=== PATIENT | female | born 1950 | race Caucasian/White ===

== ENCOUNTER 2020-09-29 12:42 | Inpatient (IN) | payer MEDICARE ==
[2020-09-29 14:00] LABS: Appearance SLIGHTLY CLOUDY (CLEAR); Bilirubin NEGATIVE (NEGATIVE); Blood NEGATIVE Ery/ul (0-5); Epithelial Cells RARE /HPF (FEW); Glucose NEGATIVE (NEGATIVE); Ketones TRACE (NEGATIVE); Leukocyte Esterase NEGATIVE (NEGATIVE); Mucus SLIGHT /HPF (NEGATIVE); Nitrite NEGATIVE (NEGATIVE); Protein,Urine Dip 100 (Negative); RBC 0-2 /HPF (0-2); Specific Gravity 1.027 (1.005-1.025); Urobilinogen 4 mg/dL (0-1)
[2020-09-29 14:15] LABS: Hematocrit 38.9 % (35-47); Hemoglobin 12.3 gm/dl (12.0-16.0); Mean Cell Volume 94.9 fl (78-100); Mean Corpuscular Hgb Concent. 31.6 g/dl (32-36); Mean Platelet Volume 11.3 fl (7.5-11.0); Platelet Count 187 K/mm3 (150-450); Red Cell Distribution Width 14.9 % (11.5-14.0); White Blood Count 5.5 K/mm3 (4.0-10.5)
[2020-09-29 14:22] LABS: ALBUMIN 3.4 g/dL (3.5-5.0); ANION GAP 9.8 MEQ/L (5-15); BILIRUBIN,TOTAL 0.6 mg/dL (0.2-1.3); Calcium 7.6 mg/dL (8.4-10.2); Creatinine 1 1.05 mg/dL (0.52-1.04); EST GLOMERULAR FILTRATION RATE 55.2 ML/MIN; Potassium 3.1 mmol/L (3.5-5.1); Total Protein 6.4 g/dL (6.3-8.2)
--- NOTE | 2020-09-29 14:38 | ERPHSYRPT ---
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 pt states she has thyroid issues and "it just bottoms out sometimes" Triage Nursing Assessment: to er c/o general illness pt arrives dusky weak and nauseated. pt 02 sats on monitor 75% on ra pt does not wear home o2 when placed on 2l pt began to pink up though pt denies any sob with this. pt vomited x1 resp easy and non labored pt a@0x3 at this time though was not oriented to time at home Physician History: 70 years old female with history of hypertension, hyperlipidemia, hypothyroidism presented in the ER with chief complaint of 1 week history of progressive worsening generalized weakness fatigue and tiredness. Also has subjective feeling of fever and chills. Minimal productive cough. Patient was seen outpatient, was recommended supportive care. Patient on presentation is hypoxic with oxygen saturation around 75% but denies any shortness of breath, placed on 2 L oxygen and it improved to 92%. She also got nauseated and vomited times once on presentation in the ER but denies any abdominal pain. Timing/Duration: week(s) (1), gradual onset, worse Severity: moderate Modifying Factors: Improves With: rest. Worsens With: movement Associated Symptoms: nausea, vomiting, cough, chills, fever, loss of appetite, malaise, weakness, No abdominal pain Allergies/Adverse Reactions: No Known Drug Allergies Allergy (Unverified 09/29/20 13:27) Home Medications: Hydrochlorothiazide 25 mg [hydroDIURIL 25 MG] 12.5 mg PO DAILY 09/29/20 [History] Levothyroxine Sodium 88 Mcg [Synthroid 88 Mcg] 88 mcg PO DAILY 09/29/20 [History] Loratadine 10 mg [Claritin 10 mg] 10 mg PO DAILY 09/29/20 [History] Montelukast Sodium 10 mg PO DAILY 09/29/20 [History] Omeprazole 20 mg PO DAILY 09/29/20 [History] Pravastatin Sodium 20 mg PO DAILY 09/29/20 [History] Terbinafine HCl 250 mg PO DAILY 09/29/20 [History] Hx Influenza Vaccination/Date Given: Yes Travel Risk - International Travel Have you traveled outside of the country in past 3 weeks: No - Coronavirus Screening Are you exhibiting any of the following symptoms?: Yes Symptoms: Fever, Vomiting/Diarrhea Close contact with a COVID-19 positive Pt in past 14-21 Days: No - Review of Systems Constitutional: Fever, Chills, Fatigue, Weakness Eyes: No Symptoms Ears, Nose, & Throat: No Symptoms Respiratory: Cough, Dyspnea Cardiac: No Symptoms Abdominal/Gastrointestinal: Nausea, Vomiting Genitourinary Symptoms: No Symptoms Musculoskeletal: No Symptoms Skin: No Symptoms Neurological: No Symptoms Psychological: No Symptoms Endocrine: No Symptoms Hematologic/Lymphatic: No Symptoms - Past Medical History Pertinent Past Medical History: Yes Respiratory History: Bronchitis Endocrine Medical History: Hypothyroidism Musculoskeletal History: No Pertinent History GI Medical History: No Pertinent History History: No Pertinent History Psycho-Social History: No Pertinent History Female Reproductive Disorders: No Pertinent History - Past Surgical History Past Surgical History: Yes Female Surgical History: Hysterectomy - Social History Smoking Status: Never smoker Exposure to second hand smoke: No - Nursing Vital Signs Nursing Vital Signs: Initial Vital Signs Temperature 99.8 F 09/29/20 13:12 Pulse Rate 79 09/29/20 13:12 Respiratory Rate 16 09/29/20 13:12 Blood Pressure 115/62 09/29/20 13:12 O2 Sat by Pulse Oximetry 78 L 09/29/20 13:12 Pain Scale Pain Intensity 0 - Physical Exam General Appearance: no apparent distress Eye Exam: PERRL/EOMI Ears, Nose, Throat Exam: normal ENT inspection, pharyngeal erythema Neck Exam: normal inspection, non-tender, supple, full range of motion Respiratory Exam: diminished breath sounds, crackles/rales, wheezing, No accessory muscle use Cardiovascular Exam: regular rate/rhythm, normal heart sounds Gastrointestinal/Abdomen Exam: soft, normal bowel sounds, No tenderness Back Exam: normal inspection Extremity Exam: normal inspection, normal range of motion, pelvis stable Neurologic Exam: alert, oriented x 3, cooperative, 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, normal mood/affect Skin Exam: normal color SpO2 Interpretation: normal SpO2: 92 O2 Delivery: Nasal Cannula - Course EKG Interpreted by Me: RATE (75), NORMAL AXIS, NORMAL INTERVALS, NORMAL QRS Ordered Tests: Active Orders 24 hr Category Date Time Status EKG-ER Only STAT Care 09/29/20 13:38 Active IV Insertion STAT Care 09/29/20 13:38 Active CHEST 1 VIEW (PORTABLE) Stat Exams 09/29/20 13:39 Completed CHEST WITH CONTRAST [CT] Stat Exams 09/29/20 16:31 Completed ABG [ARTERIAL BLOOD GASES] Stat Lab 09/29/20 14:07 Completed BLOOD CULTURE Stat Lab 09/29/20 14:05 Received CBC W DIFF Stat Lab 09/29/20 13:50 Completed CMP Stat Lab 09/29/20 13:50 Completed D-DIMER QUANTITATIVE Stat Lab 09/29/20 16:06 Completed LIPASE Stat Lab 09/29/20 13:50 Completed Lactic Acid Stat Lab 09/29/20 13:38 Completed Manual Differential NC Stat Lab 09/29/20 13:50 Completed TROPONIN Q3H Lab 09/29/20 13:50 Completed TROPONIN Q3H Lab 09/29/20 14:45 Completed TROPONIN Q3H Lab 09/29/20 19:45 Ordered TROPONIN Q3H Lab 09/29/20 22:45 Ordered TROPONIN Q3H Lab 09/30/20 01:45 Ordered TSH [TSH, 3RD Generation] Stat Lab 09/29/20 13:50 Completed UA W/RFX UR CULTURE Stat Lab 09/29/20 13:54 Completed Transfer Order Routine Transfer 09/29/20 Ordered Medication Summary Generic Name Dose Route Start Last Admin Trade Name Freq PRN Reason Stop Dose Admin Remdesivir 200 mg/ Sodium 250 mls @ 125 mls/hr 09/29/20 15:29 09/29/20 16:04 Chloride IV 09/29/20 17:28 125 mls/hr ONCE ONE Administration Discontinued Medications Generic Name Dose Route Start Last Admin Trade Name Freq PRN Reason Stop Dose Admin Aspirin 324 mg 09/29/20 14:46 Baby Aspirin 81 Mg Chew PO 09/29/20 14:47 STAT ONE Dexamethasone Sodium Phosphate 6 mg 09/29/20 14:47 09/29/20 15:20 Decadron 4 Mg Inj IV 09/29/20 14:48 6 mg STAT ONE Administration Dexamethasone Sodium Phosphate Confirm 09/29/20 15:14 Decadron 4 Mg Inj Administered 09/29/20 15:15 Dose 4 mg .ROUTE .STK-MED ONE Dexamethasone Sodium Phosphate Confirm 09/29/20 15:24 Decadron 4 Mg Inj Administered 09/29/20 15:25 Dose 4 mg .ROUTE .STK-MED ONE Azithromycin 500 mg in 250 mls @ 250 mls/hr 09/29/20 14:44 09/29/20 15:17 Zithromax 500 Mg/ 250 Ml Nacl Premix IV 09/29/20 15:43 100 mls/hr STAT STA 100 mls/hr Administration Ceftriaxone Sodium/Dextrose 1 g in 50 mls @ 100 mls/hr 09/29/20 14:44 09/29/20 15:20 Rocephin 1 Gm-D5w 50 Ml Bag IV 09/29/20 15:13 100 mls/hr STAT STA 100 mls/hr Administration Azithromycin Confirm 09/29/20 15:15 Zithromax 500 Mg/ 250 Ml Nacl Premix Administered 09/29/20 15:16 Dose 500 mg in 250 mls @ ud IV .STK-MED ONE Ceftriaxone Sodium/Dextrose Confirm 09/29/20 15:15 Rocephin 1 Gm-D5w 50 Ml Bag Administered 09/29/20 15:16 Dose 1 g in 50 mls @ ud IV .STK-MED ONE Lab/Rad Data: Laboratory Result Diagrams 09/29/20 13:50 09/29/20 13:50 Laboratory Results 09/29/20 09/29/20 09/29/20 Range/Units 16:06 14:45 14:28 WBC (4.0-10.5) K/mm3 RBC (4.1-5.4) M/mm3 Hgb (12.0-16.0) gm/dl Hct (35-47) % MCV (78-100) fl MCH (26-32) pg MCHC (32-36) g/dl RDW (11.5-14.0) % Plt Count (150-450) K/mm3 MPV (7.5-11.0) fl Segmented Neutrophils (36.0-66.0) % Lymphocytes (Manual) (24-44) % Monocytes (Manual) (0.0-12.0) % Platelet Estimate (NORMAL) RBC Morphology D-Dimer 1030 H* (215-500) ng/mL Puncture Site pCO2 (35-45) mmHg pO2 (75-100) mmHg Base Excess (-2.0-2.0) O2 Saturation (94-100) g/dF ABG pH (7.35-7.45) ABG HCO3 (22-28) ABG O2 Sat (Measured) (95-100) % Enoc Test A-a Gradient a/A Ratio Hemoglobin Carboxyhemoglobin (0.0-6.9) % THgb Methemoglobin (1.4-1.5) % Temperature C POC O2 Flow Rate % Sodium (137-145) mmol/L Potassium (3.5-5.1) mmol/L Chloride (98-107) mmol/L Carbon Dioxide (22-30) mmol/L Anion Gap (5-15) MEQ/L BUN (7-17) mg/dL Creatinine (0.52-1.04) mg/dL Estimated GFR ML/MIN Glucose (74-106) mg/dL Lactic Acid (0.4-2.0) Calcium (8.4-10.2) mg/dL Total Bilirubin (0.2-1.3) mg/dL AST (14-36) U/L ALT (0-35) U/L Alkaline Phosphatase (38-126) U/L Troponin I 0.063 H* (0.000-0.034) ng/mL Serum Total Protein (6.3-8.2) g/dL Albumin (3.5-5.0) g/dL Lipase (23-300) U/L TSH 3rd Generation (0.47-4.68) mIU/L Urine Color (YELLOW) Urine Appearance (CLEAR) Urine pH (5-6) Ur Specific [place] (1.005-1.025) Urine Protein (Negative) Urine Ketones (NEGATIVE) Urine Blood (0-5) James/ul Urine Nitrite (NEGATIVE) Urine Bilirubin (NEGATIVE) Urine Urobilinogen (0-1) mg/dL Ur Leukocyte Esterase (NEGATIVE) Urine WBC (Auto) (0-5) /HPF Urine RBC (Auto) (0-2) /HPF U Epithel Cells (Auto) (FEW) /HPF Urine Bacteria (Auto) (NEGATIVE) /HPF Urine Mucus (Auto) (NEGATIVE) /HPF Urine Culture Reflexed (NO) Urine Glucose (NEGATIVE) mg/dL SARS-CoV-2 (PCR) POSITIVE A (NEGATIVE) 09/29/20 09/29/20 09/29/20 Range/Units 14:07 13:54 13:50 WBC (4.0-10.5) K/mm3 RBC (4.1-5.4) M/mm3 Hgb (12.0-16.0) gm/dl Hct (35-47) % MCV (78-100) fl MCH (26-32) pg MCHC (32-36) g/dl RDW (11.5-14.0) % Plt Count (150-450) K/mm3 MPV (7.5-11.0) fl Segmented Neutrophils (36.0-66.0) % Lymphocytes (Manual) (24-44) % Monocytes (Manual) (0.0-12.0) % Platelet Estimate (NORMAL) RBC Morphology D-Dimer (215-500) ng/mL Puncture Site LEFT BRACHIAL pCO2 47 H (35-45) mmHg pO2 70 L (75-100) mmHg Base Excess 9.1 H (-2.0-2.0) O2 Saturation 93.0 L (94-100) g/dF ABG pH 7.47 H (7.35-7.45) ABG HCO3 34.2 H* (22-28) ABG O2 Sat (Measured) 95.6 (95-100) % Enoc Test NOT APPLICABLE A-a Gradient 71 a/A Ratio 0.50 Hemoglobin 12.6 Carboxyhemoglobin 1.8 (0.0-6.9) % THgb Methemoglobin 0.9 L (1.4-1.5) % Temperature 37.0 C POC O2 Flow Rate 28 % Sodium (137-145) mmol/L Potassium 3.0 L (3.5-5.1) mmol/L Chloride (98-107) mmol/L Carbon Dioxide (22-30) mmol/L Anion Gap (5-15) MEQ/L BUN (7-17) mg/dL Creatinine (0.52-1.04) mg/dL Estimated GFR ML/MIN Glucose (74-106) mg/dL Lactic Acid (0.4-2.0) Calcium (8.4-10.2) mg/dL Total Bilirubin (0.2-1.3) mg/dL AST (14-36) U/L ALT (0-35) U/L Alkaline Phosphatase (38-126) U/L Troponin I 0.065 H* (0.000-0.034) ng/mL Serum Total Protein (6.3-8.2) g/dL Albumin (3.5-5.0) g/dL Lipase (23-300) U/L TSH 3rd Generation (0.47-4.68) mIU/L Urine Color SG (YELLOW) Urine Appearance SLIGHTLY CLOUDY (CLEAR) Urine pH 5.0 (5-6) Ur Specific [place] 1.027 (1.005-1.025) Urine Protein 100 (Negative) Urine Ketones TRACE (NEGATIVE) Urine Blood NEGATIVE (0-5) James/ul Urine Nitrite NEGATIVE (NEGATIVE) Urine Bilirubin NEGATIVE (NEGATIVE) Urine Urobilinogen 4 (0-1) mg/dL Ur Leukocyte Esterase NEGATIVE (NEGATIVE) Urine WBC (Auto) 3-5 (0-5) /HPF Urine RBC (Auto) 0-2 (0-2) /HPF U Epithel Cells (Auto) RARE (FEW) /HPF Urine Bacteria (Auto) NONE (NEGATIVE) /HPF Urine Mucus (Auto) SLIGHT (NEGATIVE) /HPF Urine Culture Reflexed NO (NO) Urine Glucose NEGATIVE (NEGATIVE) mg/dL SARS-CoV-2 (PCR) (NEGATIVE) 09/29/20 09/29/20 09/29/20 Range/Units 13:50 13:50 13:50 WBC 5.5 (4.0-10.5) K/mm3 RBC 4.10 (4.1-5.4) M/mm3 Hgb 12.3 (12.0-16.0) gm/dl Hct 38.9 (35-47) % MCV 94.9 (78-100) fl MCH 30.0 (26-32) pg MCHC 31.6 L (32-36) g/dl RDW 14.9 H (11.5-14.0) % Plt Count 187 (150-450) K/mm3 MPV 11.3 H (7.5-11.0) fl Segmented Neutrophils 67 H (36.0-66.0) % Lymphocytes (Manual) 19 L (24-44) % Monocytes (Manual) 14 H (0.0-12.0) % Platelet Estimate NORMAL (NORMAL) RBC Morphology NORMAL D-Dimer (215-500) ng/mL Puncture Site pCO2 (35-45) mmHg pO2 (75-100) mmHg Base Excess (-2.0-2.0) O2 Saturation (94-100) g/dF ABG pH (7.35-7.45) ABG HCO3 (22-28) ABG O2 Sat (Measured) (95-100) % Enoc Test A-a Gradient a/A Ratio Hemoglobin Carboxyhemoglobin (0.0-6.9) % THgb Methemoglobin (1.4-1.5) % Temperature C POC O2 Flow Rate % Sodium 132 L (137-145) mmol/L Potassium 3.1 L (3.5-5.1) mmol/L Chloride 93 L (98-107) mmol/L Carbon Dioxide 33 H (22-30) mmol/L Anion Gap 9.8 (5-15) MEQ/L BUN 24 H (7-17) mg/dL Creatinine 1.05 H (0.52-1.04) mg/dL Estimated GFR 55.2 ML/MIN Glucose 120 H (74-106) mg/dL Lactic Acid (0.4-2.0) Calcium 7.6 L (8.4-10.2) mg/dL Total Bilirubin 0.60 (0.2-1.3) mg/dL AST 41 H (14-36) U/L ALT 29 (0-35) U/L Alkaline Phosphatase 52 (38-126) U/L Troponin I (0.000-0.034) ng/mL Serum Total Protein 6.4 (6.3-8.2) g/dL Albumin 3.4 L (3.5-5.0) g/dL Lipase 92 (23-300) U/L TSH 3rd Generation 1.490 (0.47-4.68) mIU/L Urine Color (YELLOW) Urine Appearance (CLEAR) Urine pH (5-6) Ur Specific [place] (1.005-1.025) Urine Protein (Negative) Urine Ketones (NEGATIVE) Urine Blood (0-5) James/ul Urine Nitrite (NEGATIVE) Urine Bilirubin (NEGATIVE) Urine Urobilinogen (0-1) mg/dL Ur Leukocyte Esterase (NEGATIVE) Urine WBC (Auto) (0-5) /HPF Urine RBC (Auto) (0-2) /HPF U Epithel Cells (Auto) (FEW) /HPF Urine Bacteria (Auto) (NEGATIVE) /HPF Urine Mucus (Auto) (NEGATIVE) /HPF Urine Culture Reflexed (NO) Urine Glucose (NEGATIVE) mg/dL SARS-CoV-2 (PCR) (NEGATIVE) 09/29/20 Range/Units 13:38 WBC (4.0-10.5) K/mm3 RBC (4.1-5.4) M/mm3 Hgb (12.0-16.0) gm/dl Hct (35-47) % MCV (78-100) fl MCH (26-32) pg MCHC (32-36) g/dl RDW (11.5-14.0) % Plt Count (150-450) K/mm3 MPV (7.5-11.0) fl Segmented Neutrophils (36.0-66.0) % Lymphocytes (Manual) (24-44) % Monocytes (Manual) (0.0-12.0) % Platelet Estimate (NORMAL) RBC Morphology D-Dimer (215-500) ng/mL Puncture Site pCO2 (35-45) mmHg pO2 (75-100) mmHg Base Excess (-2.0-2.0) O2 Saturation (94-100) g/dF ABG pH (7.35-7.45) ABG HCO3 (22-28) ABG O2 Sat (Measured) (95-100) % Enoc Test A-a Gradient a/A Ratio Hemoglobin Carboxyhemoglobin (0.0-6.9) % THgb Methemoglobin (1.4-1.5) % Temperature C POC O2 Flow Rate % Sodium (137-145) mmol/L Potassium (3.5-5.1) mmol/L Chloride (98-107) mmol/L Carbon Dioxide (22-30) mmol/L Anion Gap (5-15) MEQ/L BUN (7-17) mg/dL Creatinine (0.52-1.04) mg/dL Estimated GFR ML/MIN Glucose (74-106) mg/dL Lactic Acid 1.1 (0.4-2.0) Calcium (8.4-10.2) mg/dL Total Bilirubin (0.2-1.3) mg/dL AST (14-36) U/L ALT (0-35) U/L Alkaline Phosphatase (38-126) U/L Troponin I (0.000-0.034) ng/mL Serum Total Protein (6.3-8.2) g/dL Albumin (3.5-5.0) g/dL Lipase (23-300) U/L TSH 3rd Generation (0.47-4.68) mIU/L Urine Color (YELLOW) Urine Appearance (CLEAR) Urine pH (5-6) Ur Specific [place] (1.005-1.025) Urine Protein (Negative) Urine Ketones (NEGATIVE) Urine Blood (0-5) James/ul Urine Nitrite (NEGATIVE) Urine Bilirubin (NEGATIVE) Urine Urobilinogen (0-1) mg/dL Ur Leukocyte Esterase (NEGATIVE) Urine WBC (Auto) (0-5) /HPF Urine RBC (Auto) (0-2) /HPF U Epithel Cells (Auto) (FEW) /HPF Urine Bacteria (Auto) (NEGATIVE) /HPF Urine Mucus (Auto) (NEGATIVE) /HPF Urine Culture Reflexed (NO) Urine Glucose (NEGATIVE) mg/dL SARS-CoV-2 (PCR) (NEGATIVE) - Progress Progress: improved, re-examined Progress Note: 09/29/20 15:04 Patient was hypoxic on presentation although she was not in any distress. She is placed on oxygen and her saturation started to improve pretty quickly to above 90%. She has bilateral pneumonia and started on antibiotics. She has mildly elevated troponin which could be related to hypoxemia related heart strain but she denies any chest pain at all. She is given aspirin. EKG did not show any acute ST elevations. I have obtained COVID-19 which is positive. Initially patient was discussed with Dr. Hampton who was agreeable with admission but since her Covid test is positive I have discussed with Dr. Lackey and patient is admitted to Covid floor. Discussed with : Reinier, Other (Esa) Will see patient in: hospital (full admit) Counseled pt/family regarding: lab results, diagnosis, rad results - Departure Departure Disposition: In-patient Admission Clinical Impression: Hypokalemia, Elevated troponin, COVID-19 Respiratory failure Qualifiers: Chronicity: acute Respiratory failure complication: hypoxia Qualified Code(s): J96.01 - Acute respiratory failure with hypoxia Pneumonia Qualifiers: Pneumonia type: due to unspecified organism Laterality: bilateral Lung location: lower lobe of lung Qualified Code(s): J18.9 - Pneumonia, unspecified organism Condition: Stable Critical Care Time: Yes Critical Care Time(excluding separately billable procedures): Critical 30-74 mins Referrals: CAREN MOONEY NP [Primary Care Provider] -
[2020-09-29] MEDS ORDERED: ROCEPHIN 1 Gm-D5w 50 ml Bag** 1 G/50 ML IVPB IV STA (14:44)
[2020-09-29] MEDS ORDERED: Zithromax 500 MG/ 250 ML NaCl Premix 500 MG/250 ML IVPB IV STA (14:44)
[2020-09-29] MEDS ORDERED: BABY ASPIRIN 81 MG CHEW PO ONE (14:46)
[2020-09-29] MEDS ORDERED: Decadron 4 MG INJ IV ONE (14:47)
[2020-09-29 14:54] LABS: A-aADO2 71; ABG HEMOGLOBIN 12.6; ARTERIAL BLD GAS O2 SATURATION 95.6 % (95-100); ARTERIAL BLOOD GAS BASE EXCESS 9.1 (-2.0-2.0); ARTERIAL BLOOD GAS FIO2 28 %; ARTERIAL BLOOD GAS PCO2 47 mmHg (35-45); ARTERIAL BLOOD GAS PO2 70 mmHg (75-100); ARTERIAL BLOOD GAS pH 7.47 (7.35-7.45); CARBOXYHEMOGLOBIN 1.8 % THgb (0.0-6.9); HCO3- 34.2 (22-28); Methhemoglobin 0.9 % (1.4-1.5)
--- NOTE | 2020-09-29 15:05 | XRAY ---
Indication: Vomiting, cough, and "general ill feeling." Comparison: None Portable chest demonstrates hazy bilateral groundglass airspace disease with left base consolidation/atelectasis/effusion. Remaining heart and bony thorax are unremarkable.
[2020-09-29 15:06] LABS: Lymphocytes 19 % (24-44); Monocyte 14 % (0.0-12.0); Neutrophils 67 % (36.0-66.0); Platelet Estimate NORMAL (NORMAL); Total Cells Counted 100
[2020-09-29 15:10] LABS: ABG SITE LEFT BRACHIAL
[2020-09-29] MEDS ORDERED: Decadron 4 MG INJ ONE ×2 (15:14→15:24)
[2020-09-29] MEDS ORDERED: Zithromax 500 MG/ 250 ML NaCl Premix 500 MG/250 ML IVPB IV ONE (15:15)
[2020-09-29] MEDS ORDERED: ROCEPHIN 1 Gm-D5w 50 ml Bag** 1 G/50 ML IVPB IV ONE (15:15)
[2020-09-29] MEDS ORDERED: REMDESIVIR 200 MG in Sodium Chloride 0.9% 250 ML 250 ML IV ONE (15:29)
--- NOTE | 2020-09-29 17:18 | XRAY ---
Indication: Weakness. Elevated d-dimer. Multiple contiguous axial images obtained through the chest using 100 cc Isovue 370 contrast and PE protocol. Comparison: None There is good opacification of the pulmonary arteries to include the lobar and segmental branches. No pulmonary embolus. Heart is not enlarged. Aorta is normal in course and caliber. A few tiny right hilar calcified nodes. No pathologic mediastinal/hilar lymphadenopathy. Lungs demonstrates diffuse patchy groundglass airspace disease greatest in the left upper lobe. Mild bibasilar subsegmental atelectasis and scarring. No effusion. Bony thorax intact with mild degenerative changes throughout the spine. Limited upper abdomen demonstrates fatty liver and distended gallbladder with gallstones, largest 2 cm. Impression: 1. Negative pulmonary embolus. 2. Diffuse bilateral patchy airspace disease without consolidation/effusion. 3. Distended gallbladder with multiple stones. 4. Incidental fatty liver.
[2020-09-29] MEDS ORDERED: Combivent Inhaler COMMON CANISTER IH SCH (17:51)
[2020-09-29] MEDS ORDERED: TYLENOL 325 MG PO PRN (17:51)
[2020-09-29] MEDS ORDERED: HUMALOG SQ PRN (17:51)
[2020-09-29] MEDS ORDERED: Zofran 4 MG/2 ML VIAL IV PRN (17:51)
[2020-09-29] MEDS ORDERED: REMDESIVIR 100 MG in Sodium Chloride 0.9% 100 ML IVPB 100 ML IV SCH (17:51)
[2020-09-29] MEDS ORDERED: TYLENOL EXTRA STRENGTH 500 MG PO PRN (18:22)
[2020-09-29] MEDS: Singulair 10 MG PO SCH (21:27)
[2020-09-29] MEDS: ZOCOR 20MG PO SCH (21:27)
[2020-09-29] MEDS: Klor Con 10 MEQ PO SCH (21:27)
[2020-09-29] MEDS: Pepcid 20 MG VIAL IV SCH (21:27)
[2020-09-29] MEDS: Ativan 1 MG PO SCH (21:27)
[2020-09-30 06:24] LABS: Hemoglobin 12.1 gm/dl (12.0-16.0); Mean Cell Volume 94.1 fl (78-100); Mean Corpuscular Hgb Concent. 31.8 g/dl (32-36); Mean Platelet Volume 11.6 fl (7.5-11.0); Platelet Count 169 K/mm3 (150-450); Red Blood Count 4.04 M/mm3 (4.1-5.4); Red Cell Distribution Width 14.5 % (11.5-14.0); White Blood Count 6.3 K/mm3 (4.0-10.5)
[2020-09-30 06:30] LABS: INR 1.18 (0.8-3.0); PROTIME 13.4 SECONDS (9.95-12.35)
[2020-09-30 06:36] LABS: ALBUMIN 3.3 g/dL (3.5-5.0); ALKALINE PHOSPHATASE 52 U/L (38-126); ANION GAP 8.9 MEQ/L (5-15); BLOOD UREA NITROGEN 22 mg/dL (7-17); CHLORIDE 95 mmol/L (98-107); Calcium 7.6 mg/dL (8.4-10.2); Carbon Dioxide 32 mmol/L (22-30); Creatinine 1 0.72 mg/dL (0.52-1.04); EST GLOMERULAR FILTRATION RATE > 60.0 ML/MIN; Glucose 140 mg/dL (74-106); Potassium 3.5 mmol/L (3.5-5.1); SGOT/AST 35 U/L (14-36); SGPT/ALT 30 U/L (0-35); SODIUM 132 mmol/L (137-145); Total Protein 6.1 g/dL (6.3-8.2)
[2020-09-30] MEDS: Sodium Chloride 0.9% 10 ML FLUSH Syringe IV SCH ×3 (06:50→21:08)
[2020-09-30] MEDS: Decadron 4 MG INJ IV SCH ×2 (09:02→21:07)
[2020-09-30] MEDS: ENOXAPARIN SODIUM SQ SCH (09:02)
[2020-09-30] MEDS: hydroDIURIL 25 MG PO SCH (09:02)
[2020-09-30] MEDS: CLARITIN 10 MG PO SCH (09:02)
[2020-09-30] MEDS: Pepcid 20 MG VIAL IV SCH ×2 (09:03→21:07)
[2020-09-30] MEDS: SYNTHROID 88 MCG PO SCH (09:03)
[2020-09-30] MEDS: lamISIL 250 MG PO SCH (09:03)
[2020-09-30] MEDS: Klor Con 10 MEQ PO SCH ×2 (09:03→21:07)
[2020-09-30] MEDS: Protonix 40MG Tablet PO SCH (09:03)
[2020-09-30] MEDS ORDERED: NON-FORMULARY ITEM (Omeprazole [Omeprazole] 20 MG) PO SCH (10:00)
[2020-09-30] MEDS ORDERED: ROCEPHIN 1 Gm-D5w 50 ml Bag** 1 G/50 ML IVPB IV SCH (10:00)
[2020-09-30] MEDS ORDERED: Zithromax 500 MG/ 250 ML NaCl Premix 500 MG/250 ML IVPB IV SCH (10:00)
[2020-09-30] MEDS: REMDESIVIR 100 MG in Sodium Chloride 0.9% 100 ML IVPB 100 ML IV SCH (14:50)
[2020-09-30] MEDS: Ativan 1 MG PO SCH (21:07)
[2020-09-30] MEDS: ZOCOR 20MG PO SCH (21:07)
[2020-09-30] MEDS: Singulair 10 MG PO SCH (21:07)
[2020-10-01 06:36] LABS: INR 1.28 (0.8-3.0); PROTIME 14.5 SECONDS (9.95-12.35)
[2020-10-01 06:39] LABS: ALKALINE PHOSPHATASE 47 U/L (38-126); ANION GAP 5.4 MEQ/L (5-15); BLOOD UREA NITROGEN 21 mg/dL (7-17); CHLORIDE 98 mmol/L (98-107); Calcium 7.8 mg/dL (8.4-10.2); Carbon Dioxide 35 mmol/L (22-30); EST GLOMERULAR FILTRATION RATE > 60.0 ML/MIN; Glucose 144 mg/dL (74-106); Potassium 3.5 mmol/L (3.5-5.1); SGOT/AST 24 U/L (14-36); SGPT/ALT 25 U/L (0-35); SODIUM 135 mmol/L (137-145); Total Protein 5.7 g/dL (6.3-8.2)
[2020-10-01] MEDS: SYNTHROID 88 MCG PO SCH (08:12)
[2020-10-01] MEDS: hydroDIURIL 25 MG PO SCH (09:02)
[2020-10-01] MEDS: Klor Con 10 MEQ PO SCH (09:03)
[2020-10-01] MEDS: ENOXAPARIN SODIUM SQ SCH (09:03)
[2020-10-01] MEDS: lamISIL 250 MG PO SCH (09:03)
[2020-10-01] MEDS: Pepcid 20 MG VIAL IV SCH (09:03)
[2020-10-01] MEDS: Protonix 40MG Tablet PO SCH (09:03)
[2020-10-01] MEDS: CLARITIN 10 MG PO SCH (09:03)
[2020-10-01] MEDS: Decadron 4 MG INJ IV SCH (09:03)
[2020-10-01] MEDS: REMDESIVIR 100 MG in Sodium Chloride 0.9% 100 ML IVPB 100 ML IV SCH (09:59)
[2020-10-01] MEDS ORDERED: ECOTRIN 81 MG PO SCH (10:00)
[2020-10-01 12:31] VITALS: BP 144/89; PULSE 85; O2SAT 94
== END 2020-10-01 12:25 | disposition home or self-care (01) | DRG 177 ==
LOC: ED 12:42 → MED SURG 17:47
PROVIDERS: ADMIT Family Medicine; ATTEND Family Medicine
DX: U07.1 COVID-19 (principal); J12.89 Other viral pneumonia; R53.1 Weakness; I10 Essential (primary) hypertension; E78.5 Hyperlipidemia, unspecified; E03.9 Hypothyroidism, unspecified; R11.2 Nausea with vomiting, unspecified; Z79.899 Other long term (current) drug therapy; E87.6 Hypokalemia; R79.89 Other specified abnormal findings of blood chemistry
CPT/HCPCS: 36000; 36415; 36600; 71045; 71260; 80053; 81001; 82375; 82803; 83605; 83690; 84443; 84484; 85025; 85379; 85610; 87040; 93005; 94762; 96365; 96367; 96368; 96374; 99285; 99291; U0003; J0456; J0696; J1100; J1650; A9270-GY

== ENCOUNTER 2024-03-18 15:39 | Day surgery (SDC) | payer MEDICARE ==
[2024-03-18] MEDS ORDERED: BUPIVACAINE 0.5% VIAL IJ ONE (15:40)
[2024-03-18] MEDS ORDERED: Depo-Medrol 40 MG/ML IM ONE (15:40)
[2024-03-18] MEDS ORDERED: XYLOCAINE-MPF 1% 5ML SDV IJ ONE (15:40)
--- NOTE | 2024-03-18 20:56 | XRAY ---
Indication: Bilateral SI joint injection. Intraoperative fluoroscopy provided for 21 seconds. 2 digital spot image submitted for interpretation demonstrates posterior needle tips projecting over left/right SI joints. Small amount of contrast injected for all needle tip placement. Correlate with intraoperative findings/report.
--- NOTE | 2024-03-18 20:58 | XRAY ---
21 seconds of fluoroscopy used in surgery for bilateral SIJ injections.
== END 2024-03-18 18:06 | disposition home or self-care (01) ==
LOC: SDC-PAIN 15:39
PROVIDERS: ATTEND Psychiatry & Neurology Pain Medicine
DX: M46.1 Sacroiliitis, not elsewhere classified (principal)
CPT/HCPCS: 27096; 72202; 77002; G0260; J1010; Q9966

== ENCOUNTER 2024-07-22 15:03 | Day surgery (SDC) | payer MEDICARE ==
[2024-07-22] MEDS ORDERED: LIDOCAINE HCL 1% AMPUL 5 ML IJ ONE (15:04)
[2024-07-22] MEDS ORDERED: Depo-Medrol 40 MG/ML IM ONE (15:04)
[2024-07-22] MEDS ORDERED: Sodium Chloride 0.9(Preservative Free) 10 ML IJ ONE (15:04)
--- NOTE | 2024-07-22 18:24 | XRAY ---
Indication: Bilateral SI joint injection. Intraoperative fluoroscopy provided for 26 seconds. 4 digital spot image submitted for interpretation demonstrates posterior needle tips projecting over left and right SI joints. Small amount of contrast injected for both needle tip placement. Correlate with intraoperative findings/report.
--- NOTE | 2024-07-23 08:37 | XRAY ---
26 seconds of fluoroscopy was used in surgery for a bilateral sacroiliac joint injection.
== END 2024-07-22 17:27 | disposition home or self-care (01) ==
LOC: SDC-PAIN 15:03
PROVIDERS: ATTEND Psychiatry & Neurology Pain Medicine
DX: M46.1 Sacroiliitis, not elsewhere classified (principal)
CPT/HCPCS: 27096; 72202; 77002; G0260; Q9966